=== PATIENT | male | born 1990 ===

== ENCOUNTER 2018-06-11 11:24 | Emergency (ER) | payer OTHER ==
[~2018-06-11] VITALS: Ht 177.8 cm; Wt 77.1 kg
[~2018-06-11 11:24] MED LIST: ALBU4 PO; ALBU90OI61 INH; AMPDEX30CR; AZIT250 PO; Amoxicillin500 MG PO; BENZ100A PO; HYDGUAL120 PO; IBUP400 PO; IBUP800 PO; LORTAB 10 MG-3473 ML PO; META800 PO; PROACE100 PO; PROM25 PO; Q-Tussin100 MG/5 M PO; TRAM50 PO; Zofran Odt4 MG SL
[2018-06-11] MEDS ORDERED: ONDA4ODT MM (12:44)
[2018-06-11] MEDS ORDERED: Vibramycin100 MG PO (12:44)
[2018-06-11] MEDS ORDERED: IBUP600 PO (12:44)
== END 2018-06-11 12:55 | disposition home or self-care (01) ==
LOC: ER 11:24
DX: N45.1 Epididymitis (principal)
CPT/HCPCS: 76870; 81000; J0696; J1885

== ENCOUNTER 2023-03-23 11:17 | Emergency (ER) | payer OTHER ==
[~2023-03-23] VITALS: Ht 177.8 cm; Wt 79.4 kg
[~2023-03-23 11:17] MED LIST changes: +IBUP600 PO; +ONDA4ODT MM; +Vibramycin100 MG PO
[2023-03-23] MEDS ORDERED: Roxicodone5 MG PO (13:23)
[2023-03-23] MEDS ORDERED: IBUP600 PO (13:23)
[2023-03-23 13:30] VITALS: BP 141/74
== END 2023-03-23 13:49 | disposition home or self-care (01) ==
LOC: ER 11:17
DX: S43.101A Unspecified dislocation of right acromioclavicular joint, initial encounter (principal); V00.131A Fall from skateboard, initial encounter; Y93.51 Activity, roller skating (inline) and skateboarding
CPT/HCPCS: 73030; 96372; 99283-25; A9270; J1885

== ENCOUNTER 2024-01-19 12:16 | Emergency (ER) | payer OTHER ==
[~2024-01-19] VITALS: Ht 177.8 cm; Wt 80.3 kg
[~2024-01-19 12:16] MED LIST changes: +Roxicodone5 MG PO
[2024-01-19 13:09] LABS: BASOPHILS ABSOLUTE AUTO 0.04 K/mm3 (0.00-0.23); BASOPHILS PERCENT AUTO 1 % (0-2); EOSINOPHILS ABSOLUTE AUTO 0.32 K/mm3 (0.00-0.68); EOSINOPHILS PERCENT AUTO 6 % (0-6); Hematocrit 37.4 % (37.0-53.0); Hemoglobin 12.7 g/dL (13.5-17.5); IMMATURE GRAN PERCENT AUTO 0 % (0-1); LYMPHOCYTES ABSOLUTE AUTO 1.93 K/mm3 (0.84-5.20); LYMPHOCYTES PERCENT AUTO 34 % (21-46); MONOCYTES ABSOLUTE AUTO 0.48 K/mm3 (0.16-1.47); MONOCYTES PERCENT AUTO 8 % (4-13); Mean Corpuscular HGB 29.8 pg (26.0-34.0); Mean Corpuscular Volume 88 fL (80-100); NEUTROPHILS ABSOLUTE AUTO 2.95 K/mm3 (1.96-9.15); NEUTROPHILS PERCENT AUTO 52 % (41-73); Platelet Count 291 K/mm3 (150-400); RDW Coefficient Variation 12.3 % (11.7-14.2); RDW Standard Deviation 39.1 fL (35.1-46.3); Red Blood Cell Count 4.26 M/mm3 (4.30-5.90); White Blood Cell Count 5.72 K/mm3 (4.00-11.30)
[2024-01-19 13:31] LABS: Albumin, Blood 3.6 g/dL (3.4-5.0); Bilirubin, Total 0.1 mg/dL (0.1-1.0); Bun/Creatinine Ratio 12.8 (12.0-20.0); Calcium, Blood 8.8 mg/dL (8.5-10.1); Creatinine, Blood 0.86 mg/dL (0.60-1.20); Globulin, Blood 3.5 g/dL (2.2-4.0); Potassium, Blood 3.6 mmol/L (3.5-5.5); Total Protein, Blood 7.1 g/dL (6.4-8.2)
[2024-01-19 14:37] VITALS: BP 131/95
[2024-01-19] MEDS ORDERED: Acetaminophen 325 MG TABLET PO ONE (14:50)
[2024-01-19] MEDS ORDERED: Ketorolac Tromethamine 15mg Vial IV ONE (14:50)
[2024-01-19] MEDS ORDERED: ONDA4ODT MM (16:30)
[2024-01-19] MEDS ORDERED: Percocet 5-3251 EACH PO (16:30)
== END 2024-01-19 16:42 | disposition home or self-care (01) ==
LOC: ER 12:16
PROVIDERS: Student in an Organized Health Care Education/Training Program
DX: S09.90XA Unspecified injury of head, initial encounter (principal); S43.101A Unspecified dislocation of right acromioclavicular joint, initial encounter; K40.90 Unilateral inguinal hernia, without obstruction or gangrene, not specified as recurrent; W01.10XA Fall on same level from slipping, tripping and stumbling with subsequent striking against unspecified object, initial encounter; Z79.899 Other long term (current) drug therapy; F17.200 Nicotine dependence, unspecified, uncomplicated
CPT/HCPCS: 70450; 73030; 74177; 80053; 85025; 96374-59; 99284-25; A9270; J1885; Q9967